=== PATIENT | male | born 1990 | race Caucasian/White ===

== ENCOUNTER → 2023-11-18 | Outpatient (REF) | payer OTHER, SELFPAY | LOC: DHSLP | PROVIDERS: ATTENDING PHYSICIAN Internal Medicine Critical Care Medicine; FAMILY PHYSICIAN Family Medicine | DX: G47.33 Obstructive sleep apnea (adult) (pediatric) (principal) | CPT/HCPCS: 95800 ==

== ENCOUNTER → 2024-02-22 06:30 | Day surgery (SDC) | payer OTHER, SELFPAY | LOC: GI 06:30 | PROVIDERS: ATTENDING PHYSICIAN Internal Medicine Gastroenterology | DX: K20.90 Esophagitis, unspecified without bleeding (principal); K22.89 Other specified disease of esophagus; K21.9 Gastro-esophageal reflux disease without esophagitis; K31.7 Polyp of stomach and duodenum; K31.89 Other diseases of stomach and duodenum | CPT/HCPCS: 43239; 88305; 88342 ==

== ENCOUNTER 2024-04-11 07:58 | Day surgery (SDC) | payer OTHER, SELFPAY ==
--- NOTE | 2024-04-06 10:47 | CM ---
Patient is scheduled for a septoplasty on 04/11/24. Spoke with patient prior to surgery via telephone to complete case management assessment and assess for discharge planning needs. Patient reports that he lives with his and daughter in a two
story home. He currently functions independently. He uses a cpap. He believes he has a prescription plan and uses [facility] on [facility] in [place].
PCP is Caitlyn Blair
Discussed discharge plans. Patient plans to return home at discharge. He states that he will have support from his when he goes home. He has no discharge planning concerns at this time.
[2024-04-11] VITALS (12 sets, daily range): BP systolic 113–159; BP diastolic 71–93; BMI 34.2
[2024-04-11] MEDS: NORMOSOL-R 1000 IV ×3 (09:12→22:20)
--- NOTE | 2024-04-11 12:32 | PTCARENOTE ---
Patient received from PACU in stretcher; Patient ambulated to chair; Patient denies nausea/vomiting at this time; Patient states he has mild pain to throat; Gauze with tape below nose, scant amount of serosanguineous drainage; Patient on room air
currently; Call cardona within reach; Assessment ongoing
[2024-04-11] MEDS: NORCO 5/325 1 TABLET PO ×2 (13:14→22:15)
[2024-04-11] MEDS: ANCEF 2.5 MG IV (17:25)
[2024-04-12] MEDS: ANCEF 2.5 MG IV (02:22)
[2024-04-12] MEDS: NORCO 5/325 2 TABLET PO (02:27)
[2024-04-12 03:37] VITALS: BP 112/70
[2024-04-12 07:20] VITALS: BP 102/70
[2024-04-12] MEDS: CLARITIN 10 MG PO (08:02)
--- NOTE | 2024-04-12 08:30 | W.PN.ENT ---
Today's Communication
-
stable postop
dc to home
Impression / Plan
-
stable postop
dc to home
Subjective Data
-
little pain and bleeding. no dyspnea.
Objective Data
-
Vital Signs
Temp Pulse Resp BP Pulse Ox
98.3 F 67 17 102/70 96
04/12/24 07:20 04/12/24 07:20 04/12/24 07:20 04/12/24 07:20 04/12/24 08:00
Intake & Output
04/11/24 04/12/24 04/13/24
06:59 06:59 06:59
Intake:
Oral fluids 1520 / 1520
IV fluids (Total) 1640 / 1640
Normosol 200 / 200
Output:
Urine, Voided 1000 / 1000
Other:
Number of approximated MODERATE 3
amounts of urine
Number of approximated LARGE 2
amounts of urine
Physical Exam
-
A&O
afeb
94-98% sat
Cabrera splints removed
septum midline, intact
== END 2024-04-12 09:16 | disposition home or self-care (01) ==
LOC: SDS 07:58
PROVIDERS: ATTENDING PHYSICIAN Otolaryngology
DX: J34.2 Deviated nasal septum (principal); J34.3 Hypertrophy of nasal turbinates; G47.33 Obstructive sleep apnea (adult) (pediatric); Z87.891 Personal history of nicotine dependence
CPT/HCPCS: 30520; 30802

== ENCOUNTER → 2024-09-06 08:27 | Outpatient (REF) | payer OTHER, SELFPAY | LOC: RAD 08:27 | PROVIDERS: ATTENDING PHYSICIAN Family Medicine; FAMILY PHYSICIAN Family Medicine; REFERRING PHYSICIAN Orthopaedic Surgery | DX: M54.50 Low back pain, unspecified (principal); S05.50XA Penetrating wound with foreign body of unspecified eyeball, initial encounter | CPT/HCPCS: 70030; 72110 ==

== ENCOUNTER → 2025-02-18 11:08 | Outpatient (REF) | payer OTHER, SELFPAY | LOC: RCS 11:08 | PROVIDERS: ATTENDING PHYSICIAN Internal Medicine | DX: R00.2 Palpitations (principal) | CPT/HCPCS: 93225; 93226 ==